=== PATIENT | male | born 1955 | race Two or more races ===

== ENCOUNTER 2018-06-29 14:22 | Emergency (ER) | payer MEDICAID ==
[~2018-06-29] VITALS: Ht 190.5 cm; Wt 108.0 kg
[2018-06-29 14:35] VITALS: BP 116/61
[2018-06-29] MEDS ORDERED: methylPREDNISolone SOD SUCC 125 MG/2 ML VL IM ONE (16:00)
[2018-06-29] MEDS ORDERED: cefTRIAXone SOD 1,000 MG VL IM ONE (16:00)
== END 2018-06-29 17:12 | disposition home or self-care (01) ==
LOC: ER 14:22
DX: B01.9 Varicella without complication (principal); E10.9 Type 1 diabetes mellitus without complications
CPT/HCPCS: 82962; 96372; 99284; J0696; J2930